=== PATIENT | female | born 1985 | race American Indian/Alaskan Native ===

== ENCOUNTER 2021-01-13 11:29 | Emergency (ER) | payer BC ==
--- NOTE | 2021-01-13 12:26 | EDM.PDOC ---
ED HPI GENERAL MEDICAL PROBLEM - General Chief Complaint: General Stated Complaint: SURGERY WED/COMPLICATIONS FROM SPINAL BLOCK Time Seen by Provider: 01/13/21 12:26 Source of Information: Reports: Patient, Family, RN Notes Reviewed History Limitations: Reports: No Limitations - History of Present Illness INITIAL COMMENTS - FREE TEXT/NARRATIVE: Cristobal presents today with complaints of headache that is worse with sitting and standing. She reports the pain as bad with pressure. She reports headache is much better when laying flat. Recent vaginal hysterectomy per Dr. [facility] on 01/09/2021 with spinal. Cristobal states she went to [facility] ER yesterday for headache, she was examined, they were going to do a blood patch but the facility became busy and she was discharged to home. Head Pain Score (Numeric/FACES): 8 - Related Data Allergies Allergy/AdvReac Type Severity Reaction Status Date / Time No Known Allergies Allergy Verified 01/13/21 12:18 Home Meds: Home Meds NK [No Known Home Meds] 01/13/21 [History] Past Medical History [employer] History: Reports: - Past Surgical History Female Surgical History: Reports: Hysterectomy Social & Family History - Tobacco Use Tobacco Use Status *Q: Never Tobacco User - Caffeine Use Caffeine Use: Reports: Coffee - Recreational Drug Use Recreational Drug Use: No ED ROS GENERAL - Review of Systems Review Of Systems: See Below Constitutional: Denies: Fever, Chills, Malaise, Weakness, Fatigue, Night Sweats, Diaphoresis HEENT: Reports: No Symptoms Respiratory: Reports: No Symptoms Cardiovascular: Reports: No Symptoms Endocrine: Reports: No Symptoms GI/Abdominal: Reports: No Symptoms : Reports: Pain. Denies: Dysuria, Hematuria, Incontinence Musculoskeletal: Reports: Other (mid-back pain) Skin: Reports: No Symptoms Neurological: Reports: Headache, Other (recent spinal for vaginal hysterectomy) Psychiatric: Reports: No Symptoms Hematologic/Lymphatic: Reports: No Symptoms Immunologic: Reports: No Symptoms ED EXAM, GENERAL - Physical Exam Exam: See Below Exam Limited By: No Limitations General Appearance: Alert, WD/WN, Mild Distress Eye Exam: Bilateral Eye: EOMI, Normal Inspection, PERRL Ears: Normal External Exam, Normal Canal, Hearing Grossly Normal, Normal TMs Nose: Normal Inspection, Normal Mucosa, No Blood Throat/Mouth: Normal Inspection, Normal Lips, Normal Teeth, Normal Gums, Normal Oropharynx, Normal Voice, No Airway Compromise Head: Atraumatic, Normocephalic Neck: Normal Inspection, Supple, Non-Tender, Full Range of Motion. No: Lymphadenopathy (R), Lymphadenopathy (L) Respiratory/Chest: No Respiratory Distress, Lungs Clear, Normal Breath Sounds, No Accessory Muscle Use, Chest Non-Tender. No: Crackles, Rales, Rhonchi, Wheezing, Stridor Cardiovascular: Normal Peripheral Pulses, Regular Rate, Rhythm, No Edema, No Gallop, No Murmur, No Rub Peripheral Pulses: 4+: Radial (L), Radial (R), Dorsalis Pedis (L), Dorsalis Pedis (R) GI/Abdominal: Normal Bowel Sounds, Soft, Non-Tender, No Organomegaly, No Distention, No Abnormal Bruit, No Mass, Pelvis Stable. No: Guarding, Rigid, Rebound, Tender (Female) Exam: Normal External Exam, Other (Noted some pelvic tenderness, no abnormal vaginal discharge. ) Back Exam: Normal Inspection, Full Range of Motion. No: CVA Tenderness (R), CVA Tenderness (L) Extremities: Normal Inspection, Normal Range of Motion, Non-Tender, No Pedal Edema, Normal Capillary Refill Neurological: Alert, Oriented, CN II-XII Intact, Normal Cognition, Normal Gait, Normal Reflexes, No Motor/Sensory Deficits Psychiatric: Normal Affect, Normal Mood Skin Exam: Warm, Dry, Intact, Normal Color, No Rash Lymphatic: No Adenopathy Course - Vital Signs Last Recorded V/S: Last Vital Signs Temp 36.3 C 01/13/21 12:15 Pulse 58 L 01/13/21 14:29 Resp 16 01/13/21 14:29 BP 131/78 01/13/21 14:29 Pulse Ox 97 01/13/21 14:29 - Orders/Labs/Meds Orders: Active Orders 24 hr Category Date Time Status Saline Lock Insert [OM.PC] Routine Oth 01/13/21 12:40 Ordered Labs: Laboratory Tests 01/13/21 01/13/21 01/13/21 Range/Units 12:41 12:54 12:54 WBC 7.0 (4.5-11.0) K/uL RBC 4.41 (3.30-5.50) M/uL Hgb 12.2 (12.0-15.0) g/dL Hct 37.3 (36.0-48.0) % MCV 85 (80-98) fL MCH 28 (27-31) pg MCHC 33 (32-36) % Plt Count 428 H (150-400) K/uL Neut % (Auto) 54.2 (36-66) % Lymph % (Auto) 34.9 (24-44) % [place] % (Auto) 7.0 H (2-6) % Eos % (Auto) 3.3 (2-4) % Baso % (Auto) 0.6 (0-1) % Sodium 140 (140-148) mmol/L Potassium 4.0 (3.6-5.2) mmol/L Chloride 107 (100-108) mmol/L Carbon Dioxide 26 (21-32) mmol/L Anion Gap 7.2 (5.0-14.0) mmol/L BUN 9 (7-18) mg/dL Creatinine 0.6 (0.6-1.0) mg/dL Est Cr Clr Drug Dosing 105.71 mL/min Estimated GFR (MDRD) > 60 (>60) Glucose 85 (74-106) mg/dL Calcium 8.3 L (8.5-10.1) mg/dL Urine Color Yellow (YELLOW) Urine Appearance Clear (CLEAR) Urine pH 8.5 H (5.0-8.0) Ur Specific [place] 1.020 (1.008-1.030) Urine Protein Negative (NEGATIVE) mg/dL Urine Glucose (UA) Negative (NEGATIVE) mg/dL Urine Ketones Negative (NEGATIVE) mg/dL Urine Occult Blood Moderate H (NEGATIVE) Urine Nitrite Negative (NEGATIVE) Urine Bilirubin Negative (NEGATIVE) Urine Urobilinogen 0.2 (0.2-1.0) EU/dL Ur Leukocyte Esterase Negative (NEGATIVE) Urine RBC 5-10 H (0-5) Urine WBC 0-5 (0-5) Ur Epithelial Cells Few Amorphous Sediment Occasional Urine Bacteria Occasional Urine Mucus Occasional Patient lab work reviewed, no acute findings noted. Case reviewed with Dr. Negrete, he is in agreement with plan. Meds: Medications Discontinued Medications Generic Name Dose Route Start Last Admin Trade Name Freq PRN Reason Stop Dose Admin Lactated Ringer's 1,000 mls @ 500 mls/hr 01/13/21 13:00 01/13/21 13:05 Ringers, Lactated IV 500 mls/hr ASDIRECTED [place] Administration Lactated Ringer's 1,000 mls @ 1,000 mls/hr 01/13/21 13:00 01/13/21 14:28 Ringers, Lactated IV 1,000 mls/hr ASDIRECTED [place] Administration Midazolam HCl 2 mg 01/13/21 12:50 01/13/21 13:11 Midazolam 1 Mg/Ml 2 Ml Sdv IVPUSH 01/13/21 12:51 2 mg ONETIME ONE Administration Sodium Chloride 10 ml 01/13/21 12:40 01/13/21 14:29 Sodium Chloride 0.9% 10 Ml Syringe FLUSH 10 ml ASDIRECTED PRN Administration Keep Vein Open - Re-Assessments/Exams Free Text/Narrative Re-Assessment/Exam: 01/13/21 12:51 Anesthesia notified, they will be in. We will have a IV inserted, 2L LR ready with versed 2mg IV. 01/13/21 15:13 Patient reports she feels much better after blood patch. Headache is almost completely gone. She complains of spasms to back. We will complete IV fluids, provide baclofen for paraspinal spasms. Follow up with primary needed. Patient tolerated spinal blood patch well. Departure - Departure Time of Disposition: 15:32 Disposition: Home, Self-Care 01 Condition: Good Clinical Impression: Spinal headache, Spasm of lumbar paraspinous muscle - Discharge Information *PRESCRIPTION DRUG MONITORING PROGRAM REVIEWED*: Not Applicable *COPY OF PRESCRIPTION DRUG MONITORING REPORT IN PATIENT SYLVIA: Not Applicable Instructions: Epidural Blood Patch for Spinal Headache, Care After Referrals: PCP,None [Primary Care Provider] - Forms: ED Department Discharge Additional Instructions: You have been evaluated and treated for spinal headache with a blood patch. Take baclofen as needed for muscle spasms. Continue post surgical care as directed per your [facility] provider. Follow up with [facility] for ongoing care. Return for any worsening, issues or concerns. Sepsis Event Note (ED) - Evaluation Sepsis Screening Result: No Definite Risk - Focused Exam Vital Signs: Vital Signs Temp Pulse Resp BP Pulse Ox 01/13/21 14:29 58 L 16 131/78 97 01/13/21 13:49 54 L 15 128/56 L 100 01/13/21 13:37 52 L 12 124/75 98 01/13/21 12:15 36.3 C 59 L 16 112/69 97 01/13/21 12:02 36.3 C 59 L 16 112/69 97 - My Orders Last 24 Hours: My Active Orders 01/13/21 12:40 Saline Lock Insert [OM.PC] Routine - Assessment/Plan Last 24 Hours: My Active Orders 01/13/21 12:40 Saline Lock Insert [OM.PC] Routine Assessment:: Spinal headache, Spasm of lumbar paraspinous muscle Plan: Patient evaluated and treated for spinal headache with a blood patch. Take baclofen as needed for muscle spasms. Continue post surgical care as directed per [facility] provider. Follow up with [facility] for ongoing care. Return for any worsening, issues or concerns.
[2021-01-13] MEDS ORDERED: Sodium Chloride 0.9% 10 ML Syringe FLUSH PRN (12:40)
[2021-01-13] MEDS ORDERED: Midazolam 1 MG/ML 2 ML SDV IVPUSH ONE (12:50)
[2021-01-13] MEDS ORDERED: Lactated Ringers 1,000 ML IV SCH ×2 (13:00)
--- NOTE | 2021-01-13 15:55 | PROC ---
DATE OF PROCEDURE: SURGEON: Harrison Lim CRNA This 35-year-old is in the emergency room with a post spinal headache. On the 09 of January, she was at [facility] where she underwent procedure requiring a spinal anesthetic. Apparently, yesterday, she had a rather severe spinal headache and had reported to the emergency room in [place]. They were busy at that time, told her that she required an epidural blood patch, and sent her home with moderate instructions as to caffeine, fluids, etc. This is my understanding. Today, she reports that the headache is increasingly bad and she is unable to be upright. I discussed the risks and benefits of an epidural blood patch, and she has understanding of these and has signed an informed consent. There was a brief delay for treatment in the emergency room here in [place], and I did give her a 2 mg dose of Versed so that she could rest comfortably until we could do the procedure. At the time of the procedure, she had an IV and had lactated Ringer's infusing. She was placed in a sitting position. Her back was prepped with Betadine x3. A 20-gauge Tuohy needle was placed into the epidural space at the exact the entry point of her spinal injection. Loss of resistance was achieved. 20 mL of blood was drawn after drawing 8 mL to clear the IV tube. The 20 mL of blood was then slowly injected into the epidural space. The patient suffered no paresthesias. The epidural needle was then removed, then Band-Aid applied to the puncture wound site. The patient will receive the second liter of lactated Ringer's and then be discharged. Approximately an hour later, I was called in to see her, she has some discomfort in her lower back that she describes as feeling like a pinched nerve. Again, she suffered no paresthesia during the procedure. I reassured her that part of this could be just movement and that she should report back to us if this continues. She is able to walk. She is smiling. Her headache has gone. At this time, she seems satisfied. She just was wondering if she had somehow or another pinched a nerve in her back moving about on the cart. NAME OF PROCEDURE: Epidural blood patch. Harrison Lim CRNA /[id number]
== END 2021-01-13 15:46 | disposition home or self-care (01) ==
LOC: JP.ED 11:29
DX: T88.59XA Other complications of anesthesia, initial encounter (principal); G44.40 Drug-induced headache, not elsewhere classified, not intractable; M62.830 Muscle spasm of back
CPT/HCPCS: 36415; 80048; 81001; 85025; 96374; 99284; J2250; J7120